=== PATIENT | female | born 1985 | race African-American/Black ===

== ENCOUNTER 2019-07-06 09:49 | Emergency (ER) | payer OTHER ==
[2019-07-06] MEDS ORDERED: Oseltamivir 75 MG CAP ONE (10:26)
== END 2019-07-06 10:48 | disposition short-term general hospital (02) ==
LOC: MADERS 09:49
DX: J11.1 Influenza due to unidentified influenza virus with other respiratory manifestations (principal); M79.605 Pain in left leg; E05.90 Thyrotoxicosis, unspecified without thyrotoxic crisis or storm
CPT/HCPCS: 99284

== ENCOUNTER 2019-11-07 15:09 | Emergency (ER) | payer OTHER | END 2019-11-07 15:39 | disposition home or self-care (01) | LOC: MADERS 15:09 | DX: O99.89 Other specified diseases and conditions complicating pregnancy, childbirth and the puerperium (principal); R04.0 Epistaxis; R03.0 Elevated blood-pressure reading, without diagnosis of hypertension; O99.282 Endocrine, nutritional and metabolic diseases complicating pregnancy, second trimester; E21.3 Hyperparathyroidism, unspecified; Z3A.27 27 weeks gestation of pregnancy; Z79.899 Other long term (current) drug therapy | CPT/HCPCS: 99283 ==

== ENCOUNTER 2020-02-07 17:05 | Emergency (ER) | payer OTHER ==
[2020-02-07 17:57] LABS: #Lymphocytes 1.8 thou/uL (1.20-3.40); #Monocytes 0.4 thou/uL (0.11-0.59); #Neutrophils 3.3 thou/uL (1.40-6.50); %Basophils 0.8 % (0.0-1.0); %Eosinophils 0.1 % (0.0-10.0); %Lymphocytes 32.7 % (21.0-51.0); %Monocytes 6.4 % (0.0-10.0); Hemoglobin 13.4 g/dL (12.0-16.0); Mean Corpuscular HGB CONC 33.3 g/dL (32.0-36.0); Mean Corpuscular Hemoglobin 27.2 pg (27.0-31.0); Mean Corpuscular Volume 81.7 fL (78.0-98.0); Mean Platelet Volume 7.4 fL (7.4-10.4); Platelet Count 338 thou/uL (130-400); RBC Distribution Width 11.5 % (11.5-14.5); Red Blood Cell (RBC) Count 4.94 mill/uL (4.20-5.40); White Blood Cell (WBC) Count 5.6 thou/uL (4.8-10.8)
[2020-02-07 18:14] LABS: ALT (SGPT) 13 U/L (8-55); AST (SGOT) 13 U/L (5-34); Albumin 4.3 g/dL (3.5-5.0); Alkaline Phosphatase 88 U/L (40-110); Anion Gap 17 mmol/L (10-20); BUN (Urea Nitrogen) 13 mg/dL (7.0-18.7); Bilirubin, Total 0.4 mg/dL (0.2-1.2); Calc. Creatinine Clearance 0 mL/min (70-130); Calcium 9.3 mg/dL (7.8-10.44); Carbon Dioxide 24 mmol/L (22-29); Chloride 106 mmol/L (98-107); Estimated GFR-MDRD Greater than 90; Globulin 3.2 g/dL (2.4-3.5); Glucose 112 mg/dL (70-105); Potassium 3.5 mmol/L (3.5-5.1); Protein, Total 7.5 g/dL (6.0-8.3); Sodium 143 mmol/L (136-145)
== END 2020-02-07 18:05 | disposition home or self-care (01) ==
LOC: MADERS 17:05
DX: R00.2 Palpitations (principal); E05.90 Thyrotoxicosis, unspecified without thyrotoxic crisis or storm; Z79.899 Other long term (current) drug therapy
CPT/HCPCS: 36415; 80053; 84443; 85025; 93005

== ENCOUNTER 2020-03-09 23:16 | Emergency (ER) | payer OTHER ==
--- NOTE | 2020-03-09 23:43 | RAD ---
XR Finger(s) Rt Min 2 View HISTORY: Right thumb pain FINDINGS: No fracture or dislocation is identified.
[2020-03-09] MEDS ORDERED: Bupivacaine PF 0.5% 30 ML VIAL ONE (23:52)
== END 2020-03-10 00:03 | disposition home or self-care (01) ==
LOC: MADERS 23:16
DX: S67.01XA Crushing injury of right thumb, initial encounter (principal); S60.111A Contusion of right thumb with damage to nail, initial encounter; I10 Essential (primary) hypertension; W23.0XXA Caught, crushed, jammed, or pinched between moving objects, initial encounter
CPT/HCPCS: 11740; S0020

== ENCOUNTER 2020-09-10 17:01 | Emergency (ER) | payer OTHER | END 2020-09-10 18:33 | disposition home or self-care (01) | LOC: MADERS 17:01 | DX: I10 Essential (primary) hypertension (principal); R42 Dizziness and giddiness; R29.700 NIHSS score 0; E05.90 Thyrotoxicosis, unspecified without thyrotoxic crisis or storm; Z79.899 Other long term (current) drug therapy | CPT/HCPCS: 93005 ==

== ENCOUNTER 2020-11-05 06:06 | Emergency (ER) | payer OTHER ==
[2020-11-05 06:30] LABS: Bilirubin Negative (Negative); Blood, Urine Large (Negative); Clarity Clear (Clear); Glucose, Urine (Dipstick) Negative (Negative); Ketone, Urine Negative (Negative); Leukocyte Negative (Negative); Nitrite Negative (Negative); Protein, Urine (Dipstick) Trace mg/dL (Neg-Trace); Urobilinogen 0.2 mg/dL (Less than 2)
[2020-11-05 06:31] LABS: Specific Gravity, Urine 1.019 (1.002-1.036)
[2020-11-05 06:32] LABS: Pregnancy Test - Urine (BHCG) Negative (Negative); Pregu Control Background? CLEAR/WHITE (CLR/WHITE); Pregu Control Bar Appear? YES (CONTROL BAR); Specific Gravity 1.019 (1.002-1.036)
[2020-11-05 06:35] LABS: Bacteria/HPF Rare-Few HPF (None Seen); RBC/HPF Greater than 50 HPF (0-3); Squamous Epithelial 0-3 HPF (0-3); WBC/HPF 0-3 HPF (0-3)
== END 2020-11-05 06:50 | disposition home or self-care (01) ==
LOC: MADERS 06:06
DX: R10.32 Left lower quadrant pain (principal); I10 Essential (primary) hypertension; E03.9 Hypothyroidism, unspecified; E05.90 Thyrotoxicosis, unspecified without thyrotoxic crisis or storm
CPT/HCPCS: 81003; 81015; 81025; 99284

== ENCOUNTER 2020-12-24 12:14 | Emergency (ER) | payer OTHER ==
[2020-12-25 07:30] LABS: SARS-CoV-2 PCR by NAA DETECTED (NotDetected)
== END 2020-12-24 13:05 | disposition home or self-care (01) ==
LOC: MADERS 12:14
DX: U07.1 COVID-19 (principal); I10 Essential (primary) hypertension; E05.90 Thyrotoxicosis, unspecified without thyrotoxic crisis or storm
CPT/HCPCS: 99283; U0003; U0005